=== PATIENT | male | born 1960 | race Caucasian/White ===

== ENCOUNTER 2017-09-16 18:33 | Emergency (ER) | payer MEDICARE ==
[2017-09-16 19:17] LABS: BASOPHILS 0.4 % (0-2); EOSINOPHILS 3.9 % (0-7); HEMATOCRIT 45.8 % (42.0-54.0); HEMOGLOBIN 15.8 g/dL (13.5-17.5); IMMATURE GRANULOCYTES 0.1 % (0-5); LYMPHOCYTES 44.2 % (15-50); MCH 31.9 pg (26.0-34.0); MCHC 34.5 g/dL (31.0-37.0); MCV 92.3 fL (80.0-100.0); MEAN PLATELET VOLUME 9.1 fL (7.4-10.4); MONOCYTES 7.2 % (2-11); NEUTROPHILS 44.2 % (40-80); PLATELET COUNT 280 10x3/uL (130-400); RBC 4.96 10x6/uL (4.20-6.10); RDW 13.3 % (11.5-14.5); WBC 7.4 10x3/uL (4.8-10.8)
[2017-09-16 19:26] LABS: APPEARANCE CLEAR (CLEAR); BILIRUBIN NEGATIVE (NEGATIVE); COLOR YELLOW (YELLOW); GLUCOSE NEGATIVE (NEGATIVE); KETONE NEGATIVE (NEGATIVE); NITRITE NEGATIVE (NEGATIVE); PROTEIN NEGATIVE (NEGATIVE); SPECIFIC GRAVITY 1.005 (1.005-1.020); UROBILINOGEN NORMAL (NORMAL)
[2017-09-16 19:33] LABS: ALBUMIN 4.1 g/dL (3.4-5.0); ALKALINE PHOSPHATASE 79 U/L (46-116); ALT (SGPT) 22 U/L (10-68); BILIRUBIN - TOTAL 0.21 mg/dL (0.2-1.3); CALC OSMOLALITY 279 mosm/kg (275-300); CALCIUM 9.3 mg/dL (8.5-10.1); CARBON DIOXIDE 27.8 mmol/L (21.0-32.0); CHLORIDE - SERUM 103 mmol/L (98-107); CREATININE - SERUM 0.9 mg/dL (0.6-1.3); GLUCOSE 93 mg/dL (74-106); POTASSIUM - SERUM 3.8 mmol/L (3.5-5.1); PROTEIN - SERUM 8.2 g/dL (6.4-8.2); SODIUM 140 mmol/L (136-145); UREA NITROGEN 14 mg/dL (7-18); eGFR NON AFRICAN AMERICAN > 90 mL/min (90-120)
[2017-09-16 19:41] LABS: CREATINE KINASE 110 UL (21-232); LIPASE 238 U/L (73-393); PRO BNP 53 pg/mL (0-125); THYROID STIMULATING HORMONE 0.97 uIU/mL (0.36-3.74)
[2017-09-16 19:42] LABS: TROPONIN-I < 0.017 ng/mL (0.000-0.060)
[2017-11-22 07:51] VITALS: BMI 20.2
== END 2017-09-16 22:39 | disposition home or self-care (01) ==
LOC: D.ER 18:33
PROVIDERS: Emergency Medicine
DX: R10.9 Unspecified abdominal pain (principal); N41.9 Inflammatory disease of prostate, unspecified; K21.9 Gastro-esophageal reflux disease without esophagitis; E11.9 Type 2 diabetes mellitus without complications; I10 Essential (primary) hypertension

== ENCOUNTER → 2017-10-03 08:26 | Outpatient (CLI) | payer MEDICARE ==
--- NOTE | ~2017-10-03 | EC ---
PATIENT:KENA PEREZ DATE OF SERVICE: 10/03/17 SEX: M MEDICAL RECORD: [id number] DATE OF : 64 LOCATION:D.[facility] AGE OF PATIENT: 57 ADMISSION DATE: 10/03/17 REFERRING PHYSICIAN: INTERPRETING PHYSICIAN: QUITA ROTHMAN MD ECHOCARDIOGRAM REPORT ECHO CHARGES 4 ECHO COMPLETE Date: 10/03 CLINICAL DIAGNOSIS: CP/HTN/PALPITATIONS/GARCIA ECHOCARDIOGRAPHIC MEASUREMENTS (adult normal given) AC root (d.<3.7cm) 3.5 cm LV Septum d (<1.2 cm> 1.2 cm Valve Excursion 2.2 cm LV Septum (systole) 1.6 cm Left Atria (s.<4.0cm> 2.9 cm LVPW d(<1.2cm) 1.2 cm RV (d.<2.3cm) 2.4 cm LVPW (sytole) 1.9 cm LV diastole(<5.6CM) 5.9 cm MV E-F(>70mm/sec) cm LV systole 3.8 cm LVOT Diameter 2.1 cm MV exc.(>10mm) cm Est.ejection fraction (50-75%) % DOPPLER: LVIT cm/sec A 55.0 cm/sec E 77.0 cm/sec LA cm/sec RVSP 32.0 mmHg LVOT 126 cm/sec AOP1/2T m/s Asc. 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 Rothman TAPE# PACS Pericardial Effusion N DATE OF SERVICE: PROCEDURE: Transthoracic echocardiogram. FINDINGS: 1. Left ventricle has mild left ventricular hypertrophy with inflow characteristics that are normal. The ejection fraction is 55%. There are no regional wall motion abnormalities. 2. The left atrium is normal size, normal function. 3. The aortic valve is normal. ECHOCARDIOGRAM REPORT [id number] KENA PEREZ 4. The mitral valve is normal with trace mitral regurgitation. 5. Tricuspid valve is normal with normal right ventricular systolic pressures. 6. The right ventricle is normal size, normal function. 7. The right atrium is mildly dilated. 8. The pulmonic valve is not well visualized. CONCLUSIONS: The patient has evidence of mild left ventricular hypertrophy, otherwise normal echocardiogram for the patient's stated age. TRANSINT:[id number] Voice Confirmation ID: [id number] DOCUMENT ID: [id number] QUITA ROTHMAN MD at 0741 CC: [id number] DICTATION DATE: 10/08/17 1051 WANIGAN CLERK: 10/08/17 1246 DEP CLI 10/03/17 [facility] [address] [place] [address]
[~2017-10-03 08:26] MED LIST: ASPIRIN325 MG PO; NITROQUICK0.4 MG SL; PLAVIX75 MG PO; ULTRAM50 MG PO
[2017-11-22 07:51] VITALS: BMI 20.2
== END | disposition home or self-care (01) ==
LOC: D.US 08:26
DX: R07.9 Chest pain, unspecified (principal); I10 Essential (primary) hypertension; E78.5 Hyperlipidemia, unspecified; I73.9 Peripheral vascular disease, unspecified; E11.8 Type 2 diabetes mellitus with unspecified complications; R00.2 Palpitations; R06.09 Other forms of dyspnea

== ENCOUNTER → 2017-10-10 17:42 | Outpatient (CLI) | payer MEDICARE ==
[2017-10-10 18:42] LABS: CHOL - HDL RATIO 5.1 ratio (2.3-4.9); LDL-HDL RATIO 3.2 ratio (1.5-3.5)
[2017-11-22 07:51] VITALS: BMI 20.2
== END | disposition home or self-care (01) ==
LOC: D.LABREF 17:42
PROVIDERS: Internal Medicine Cardiovascular Disease
DX: E78.5 Hyperlipidemia, unspecified (principal)

== ENCOUNTER 2017-11-22 06:55 | Outpatient (CLI) | payer MEDICARE ==
[~2017-11-22] VITALS: Ht 188 cm; Wt 71.4 kg
--- NOTE | ~2017-11-22 | HEMODYNAMI ---
PATIENT:KENA PEREZ MEDICAL RECORD: [id number] : 64 [place] ADMISSION DATE: 11/22/17 Generatedon:11/22/20179:25 Patient name: KENA PEREZ Patient #: [id number] SSN: : 1960 Date of study: 11/22/2017 Page: Of Hemodynamic Procedure Report Patient Data Patient Demographics Procedure consent was obtained First Name: KENA Gender: Male Last Name: ANA : 1960 Patient #: [id number] Age: 57 year(s) Race: Unknown Additional ID: [id number] Contact details Address: [place] [address] State: [place] City: [place] Zip code: [address] Past Medical History Allergies Allergen Reaction Date Comments Reported Other allergy 11/22/2017 Nsaids, Sulfas Admission Admission Data Admission Date: 11/22/2017 Admission Time: 6:55 Height (in.): 73 BSA: 1.94 (m2) Height (cm.): 185.42 BMI: 20.71 (kg/m2) Weight (lbs.): 157 Weight (kg.): 71.21 Procedure Procedure Types Cath Procedure Diagnostic Procedure LHC LH w/Coronaries Sedation Charges Moderate Sedation up to 30 minutes PCI Procedure Coronary Stent Coronary Stent Initial Procedure Description Procedure Date Procedure Date: 11/22/2017 Procedure Start Time: 8:51 Procedure End Time: 9:20 Procedure Staff Name Function Mark Goncalves MD Performing Physician Ruy Martins RN Nurse Katerina Houston RT Scrub Kary Oglesby RT Monitor Procedure Data Cath Procedure Fluoroscopy Diagnostic fluoroscopy Total fluoroscopy Time: 3.5 time: 3.5 min min Diagnostic fluoroscopy Total fluoroscopy dose: 551 dose: 551 mGy mGy Contrast Material Contrast Material Type Amount (ml) Isovue 300 83 Entry Location Entry Primary Successful Side Size Upsize Upsize Entry Closure [place] ccessful Closure Location (Fr) 1 (Fr) 2 (Fr) Remarks Device Remarks Radial Right 6 Fr Mechanical artery Short Compression Estimated blood loss: 10 ml Diagnostic catheters Device Type Used For End Catheter Placement DIAGNOSTIC [place] 110cm 5 Procedure Fr catheter ([id number]) Procedure Complications No complications Procedure Medications Medication Administration Route Dosage Oxygen NC 2 l/min Lidocaine 2% added to field 20 Heparin Flush Bag added to field 2 bags (1000units/500ml NS) 0.9% NaCl I.V. 100 ml/hr Versed I.V. 1 mg Fentanyl I.V. 50 mcg Radial Cocktail I.A. 1 syringe (Verapomil 2mg/Nitro 400mcg/Heparin 1500units) Angiomax (bolus) I.V. 10.5 ml Angiomax Drip I.V. drip 24.9 ml/hr (250mg/50ml NS) (Standard) Nitroglycerin IC/IA I.C. 300 mcg Plavix P.O. 300 mg Angiomax Drip 24.9 ml/hr (250mg/50ml NS) (Standard) Hemodynamics Rest BSA: 1.94 (m2) O2 Consumption: Estimated: 230.88 (ml/min) O2 Consumption indexed : Estimated:119.01 (ml/min/m) Heart Rate: 71 (bpm) Pressure Samples Time Site Value (mmHg) Purpose Heart Use Rate(bpm) 9:00 LV 129/-12,11 EDP 77 Gradients Valve Time Site Site Mean SEP/DFP Peak To Heart Use 1 2 (mmHg) (sec/min) Peak Rate (mmHg) (bpm) Aortic 9:01 LV AO 88 Snapshots Pre Cath Intra NCS Post Cath Vital Signs Time Heart Resp SPO2 etCO2 NIBP (mmHg) Rhythm Pain Sedation Rate (ipm) (%) (mmHg) Status Level (bpm) 8:34:19 87 17 99 0 144/91(129) NSR 0 (11) 10(A) , No pain 8:38:31 71 18 99 29.2 139/86(123) NSR 0 (11) 10(A) , No pain 8:42:42 72 21 97 29.2 131/82(106) NSR 0 (11) 10(A) , No pain 8:46:54 66 18 94 29.9 126/72(107) NSR 0 (11) 10(A) , No pain 8:51:00 80 19 94 32.2 135/86(112) NSR 0 (11) 10(A) , No pain 8:55:10 70 19 94 29.9 131/83(109) NSR 0 (11) 10(A) , No pain 8:59:30 85 19 95 28.4 134/85(111) NSR 0 (11) 10(A) , No pain 9:03:42 74 19 92 27.7 126/77(95) NSR 0 (11) 10(A) , No pain 9:07:50 73 18 92 27.7 135/80(97) NSR 0 (11) 10(A) , No pain 9:12:02 72 15 92 29.2 125/79(109) NSR 0 (11) 10(A) , No pain 9:16:12 68 17 92 29.2 124/74(108) NSR 0 (11) 10(A) , No pain 9:20:30 72 18 95 26.2 135/85(109) NSR 0 (11) 10(A) , No pain Medications Time Medication Route Dose Verified Delivered Reason Notes Effectiveness by by 8:32:53 Oxygen NC 2 l/min Mark Buffie used for Ivanna Martins RN procedure 8:32:59 Lidocaine 2% added to 20ml Mark Mark for local field vial Ivanna Goncalves MD anesthetic 8:33:05 Heparin Flush added to 2 bags Mark Mark used for Bag field Ivanna Goncalves MD procedure (1000units/500ml NS) 8:33:14 0.9% NaCl I.V. 100 Mark Buffie Per physician ml/hr Ivanna Martins RN, MD 8:43:24 Versed I.V. 1 mg Mark Buffie for sedation Ivanna Martins RN, MD 8:43:30 Fentanyl I.V. 50 mcg Mark Buffie for sedation Ivanna Martins RN, MD 8:58:44 Radial Cocktail I.A. 1 Mark Mark for (Verapomil syringe Ivanna Goncalves MD vasodilation 2mg/Nitro 400mcg/Heparin 1500units) 9:08:57 Angiomax (bolus) I.V. 10.5 ml Mark Buffie for Ivanna Martins RN anticoagulation 9:10:02 Angiomax Drip I.V. drip 24.9 Mark Buffie for (250mg/50ml NS) ml/hr Ivanna Martins RN anticoagulation (Standard) 9:11:39 Nitroglycerin I.C. 300 mcg Mark Flores for IC/IA Ivanna Goncalves MD vasodilation 9:19:59 Plavix P.O. 300 mg Mark Martins RN antiplatelet therapy 9:20:11 Angiomax Drip I.V. drip- 24.9 Mark Redmond for (250mg/50ml NS) discontinued ml/hr Ivanna Martins RN anticoagulation (Standard) Procedure Log Time Note 8:17:27 Patient Height : 73 inches 8:17:35 Patient Weight : 157 lbs 8:18:30 Diagnostic Cath status Elective 8:18:33 Ruy Martins RN sent for patient. Start room use. 8:18:34 Time tracking: Regular hours (M-F 7:00 - 5:00) 8:18:39 Plan of Care:Hemodynamics will remain stable., Cardiac rhythm will remain stable., Comfort level will be maintained., Respiratory function will remain adequate., Patient/ family verbilizes understanding of procedure., Procedure tolerated without complication., Recovers from procedure without complications.. 8:18:44 Patient received from Pre/Post Procedure Room to [facility] 2 Alert and oriented. Tansferred to table in Supine position. 8:32:53 Oxygen 2 l/min NC was administered by Ruy Martins RN; used for procedure; 8:32:59 Lidocaine 2% 20ml vial added to field was administered by Mark Goncalves MD; for local anesthetic; 8:33:05 Heparin Flush Bag (1000units/500ml NS) 2 bags added to field was administered by Mark Goncalves MD; used for procedure; 8:33:14 0.9% NaCl 100 ml/hr I.V. was administered by Ruy Martins RN; Per physician; 8:33:16 Vital chart was started 8:33:29 Warm blankets applied, and jonnathan hugger turned on for patient comfort. 8:33:30 Correct patient and procedure confirmed by team. 8:33:31 Signed procedure consent form obtained from patient. 8:33:32 ECG and BP/O2 sat monitors applied to patient. 8:33:34 Full Disclosure recording started 8:39:54 Baseline sample Acquired. 8:40:09 H&P Date Dictated: 11/20/2017 Within 30 days and on chart., H&P Addendum completed by physician on day of procedure. (MUST COMPLETE FOR ALL OUTPATIENTS). 8:40:10 Pre-procedure instructions explained to patient. 8:40:12 Family in waiting room. 8:40:15 Patient NPO since Midnight. 8:40:38 Patient allergic to Other allergyNsaids, Sulfas 8:40:41 Is the patient allergic to Iodine/contrast media? No. 8:40:42 Was the patient premedicated? Yes 8:40:44 Is patient on blood thinner?Yes 8:40:48 ACC The patient was administered the following blood thiners within the last 24 hours: ACCPlavix 8:40:51 Patient diabetic? Yes. 8:40:53 If diabetic: On Metformin? No 8:40:57 Snore? Yes 8:40:59 Sleep apnea? No 8:41:01 Airway obstruction? No ? 8:41:05 Dentures? No ? 8:41:10 Patient pain scale 0/10 ?. 8:41:17 IV patent on arrival in left forearm with 0.9% NaCl at O. 8:41:21 Lab results completed and on chart. 8:41:24 Right Radial & Right Groin area was prepped with chlora-prep and draped in sterile fashion 8:41:26 Alarms reviewed by R. N. 8:41:26 Sharps counted by scrub and verified by R.N. 8:41:29 Physician arrived 8:41:31 --------ALL STOP TIME OUT------ 8:41:32 Final Timeout: patient, procedure, and site verified with staff and physician. All members of the team are in agreement. 8:41:34 Right Radial & Right Groin site verified by team. 8:41:38 Physical assessment completed. ASA score P 2 - A patient with mild systemic disease as per Mark Goncalves MD. 8:41:42 Sedation plan: IV Moderate Sedation Medication:Versed, Fentanyl 8:41:46 Use device set Femoral Dx 8:41:48 ACIST Syringe (58850) opened to sterile field. 8:41:48 Bag Decanter (2001S) opened to sterile field. 8:41:48 Medline Cath Pack ([id number]) opened to sterile field. 8:41:49 DIAGNOSTIC WIRE .035 260cm J wire (479269) opened to sterile field. 8:41:50 ACIST Hand Control (26994) opened to sterile field. 8:41:51 ACIST Manifold (63667) opened to sterile field. 8:41:56 Tegaderm 4 x 4 (1626W) opened to sterile field. 8:42:11 SHEATH 6Fr Prelude Radial ([id number]) opened to sterile field. 8:43:24 Versed 1 mg I.V. was administered by Ruy Martins RN; for sedation; 8:43:30 Fentanyl 50 mcg I.V. was administered by Ruy Martins RN; for sedation; 8:51:06 Procedure started. 8:51:15 Local anesthetic to right radial artery with Lidocaine 2% by Mark Goncalves MD.INITIAL ACCESS ONLY 8:51:18 Zero performed for pressure channel P1 8:51:23 Zero performed for pressure channel P1 8:51:30 Zero performed for pressure channel P1 8:51:35 Zero performed for pressure channel P1 8:51:38 Zero performed for pressure channel P1 8:51:41 Zero performed for pressure channel P1 8:52:19 Zero performed for pressure channel P1 8:57:16 A 6 Fr Short sheath was inserted into the Right Radial artery 8:58:36 A DIAGNOSTIC [place] 110cm 5 Fr catheter ([id number]) was advanced over the wire and used for Procedure. 8:58:44 Radial Cocktail (Verapomil 2mg/Nitro 400mcg/Heparin 1500units) 1 syringe I.A. was administered by Mark Goncalves MD; for vasodilation; 8:58:52 LV angiography performed. 9:01:14 EF : 60 % 9:01:17 RCA angiography performed. 9:01:41 LCA angiography performed. 9:02:55 Catheter removed. 9:02:57 Proceeding to intervention. 9:05:20 GUIDE 6FR EBU 3.5 SH catheter ([id number]) opened to sterile field. 9:05:20 BMW 190cm [place] 2 J wire ([id number]) opened to sterile field. 9:05:21 COPILOT Valve Control (3866536) opened to sterile field. 9:05:22 INFLATOR Merit BasixCompak (BL7758) opened to sterile field. 9:08:57 Angiomax (bolus) 10.5 ml I.V. was administered by Ruy Martins RN; for anticoagulation; 9:10:01 6 Fr EBU 3.5SH guide catheter was inserted over the wire 9:10:02 Angiomax Drip (250mg/50ml NS) (Standard) 24.9 ml/hr I.V. drip was administered by Ruy Martins RN; for anticoagulation; 9:10:25 BMW wire advanced. 9:10:27 Wire advanced across lesion. 9:11:39 Nitroglycerin IC/IA 300 mcg I.C. was administered by Mark Goncalves MD; for vasodilation; 9:13:42 Inflate balloon Inflation number: 1 A EUPHORA 2.5 x 20 Balloon ([id number]) was prepped and advanced across the Mid LAD, then inflated to 8 THANH for 0:08 (min:sec). 9:14:09 Balloon removed over the wire. 9:16:20 Place stent Inflation Number: 2 A CRUZITO RX 2.75 x 18 stent ([id number]) was prepped and advanced across the Mid LAD. The stent was deployed at 14 THANH for 0:10 (min:sec). 9:17:18 Stent catheter was removed intact over wire. 9:17:20 Wire removed. 9:17:20 Guide catheter removed. 9:18:05 TR BAND Standard ([id number]) opened to sterile field. 9:18:18 Sheath removed intact; hemostasis achieved with Mechanical Compression to the Right Radial artery. 9:18:26 Procedure ended.(Physican Out) 9:19:08 Fluoroscopy time 03.50 minutes. 9:19:13 Flurop Dose total: 551 9:19:13 Fluoroscopy dose: 551 mGy 9:19:18 Contrast amount:Isovue 300 83ml. 9:19:21 Sharps counted by scrub and verified by R.N. 9:19:24 Insertion/operative site no bleeding no hematoma. 9:19:32 Post right radial artery:stable 9:19:34 Post Procedure Pulses reassessed and unchanged 9:19:37 Post-procedure physical assessment completed. ASA score P 2 - A patient with mild systemic disease as per Mark Goncalves MD. 9:19:39 Post procedure rhythm: unchanged. 9:19:44 Estimated blood loss: 10 ml 9:19:45 Post procedure instruction explained to patient.Patient verbalizes understanding. 9:19:59 Plavix 300 mg P.O. was administered by Ruy Martins RN; for antiplatelet therapy; 9:20:08 Procedure type changed to Cath procedure, Diagnostic procedure, LHC, LHC w/Coronaries, Sedation Charges, Moderate Sedation up to 30 minutes, PCI procedure, Coronary Stent, Coronary Stent Initial 9:20:11 Angiomax Drip (250mg/50ml NS) (Standard) 24.9 ml/hr I.V. drip- discontinued was administered by Ryu Martins RN; for anticoagulation; 9:20:17 Procedure and supply charges have been captured, reviewed, submitted and are correct. 9:20:37 Procedure Complication : No complications 9:20:40 Vital chart was stopped 9:20:41 See physician's report for complete and final results. 9:20:43 Report given to Pre/Post Procedure Room. 9:20:47 Patient transfered to Pre/Post Procedure Room with Stretcher. 9:20:49 Procedure ended. 9:20:49 Full Disclosure recording stopped 9:20:53 End room use (Document Last) Intervention Summary Intervention Notes Time ActionType Lesion and Equipment Used Action# Pressure Duration Attributes 9:13:42 Inflate Mid LAD EUPHORA 2.5 x 1 8 00:08 balloon 20 Balloon ([id number]) 9:16:20 Place stent Mid LAD CRUZITO RX 2.75 x 2 14 00:10 18 stent ([id number]) Device Usage Item Name Manufacture Quantity Catalog Number Hospital Part Current Minimal Lot# / Charge Number Stock Stock Serial# Code ACIST Syringe Acist 1 86830 [id number] 418185 564152 20 (30570) [employer] Bag Decanter Microtek 1 2001S 027317 75841 754509 5 () Medical Inc. Medline Cath Cardinal 1 [id number] 762385 83237 622689 5 [facility] ([id number]) DIAGNOSTIC WIRE St Radhames 1 287405 909978 897457 954508 30 .035 260cm J wire (543933) ACIST Hand Acist 1 75874 030378 367882 265115 5 Control (54146) [employer] ACIST Manifold Acist 1 69870 472570 868985 215342 5 (19087) [employer] Inc Tegaderm 4 x 4 3M 1 1626W 616458 305270 044553 5 (1626W) SHEATH 6Fr Merit 1 [id number] 637343 027685 441847 5 Prelude Radial Medical ([id number]) DIAGNOSTIC Terumo 1 40-1356 687875 305517 532154 5 [place] 110cm 5 Fr catheter (105618) GUIDE 6FR EBU Medtronic 1 [id number] 427116 44746 097312 1 3.5 SH catheter ([id number]) BMW 190cm Silverio 1 [id number] 723461 60187 179456 5 [place] 2 J Vascular wire ([id number]) COPILOT Valve Silverio 1 [id number] 454205 702613 958887 5 Control Vascular (6740955) INFLATOR Merit Merit 1 [id number] 052906 394791 433835 15 BasixCompak Medical (BZ8667) EUPHORA 2.5 x Medtronic 1 [id number] 686674 243603 384737 5 [id number] 20 Balloon ([id number]) CRUZITO RX 2.75 x Medtronic 1 [id number] 684510 9146209 836115 5 [id number] 18 stent ([id number]) TR BAND Terumo 1 [id number] 975299 418144 653462 40 Standard ([id number]) Signature Audit Mamou Stage Time Signature Unsigned Intra-Procedure 11/22/2017 Kary Oglesby 9:25:12 AM RT(R) Signatures Monitor : Kary Oglesby Signature : RT Date : Time : [facility] [address] [place] [address]
[2017-11-22] MEDS ORDERED: NITROQUICK0.4 MG SL (07:41)
[2017-11-22] MEDS ORDERED: PLAVIX75 MG PO (07:41)
[2017-11-22] MEDS ORDERED: ASPIRIN325 MG PO (07:42)
[2017-11-22] MEDS ORDERED: ULTRAM50 MG PO (07:42)
[2017-11-22 07:51] VITALS: BP 138/90; Ht 188 cm; Wt 71.4 kg
[2017-11-22 07:59] LABS: BASOPHILS 0.7 % (0-2); EOSINOPHILS 4.1 % (0-7); HEMATOCRIT 46.2 % (42.0-54.0); HEMOGLOBIN 16.1 g/dL (13.5-17.5); IMMATURE GRANULOCYTES 0.3 % (0-5); LYMPHOCYTES 38.9 % (15-50); MCH 32.6 pg (26.0-34.0); MCHC 34.8 g/dL (31.0-37.0); MCV 93.5 fL (80.0-100.0); MONOCYTES 10.2 % (2-11); NEUTROPHILS 45.8 % (40-80); PLATELET COUNT 259 10x3/uL (130-400); RBC 4.94 10x6/uL (4.20-6.10); WBC 5.9 10x3/uL (4.8-10.8)
[2017-11-22 08:08] LABS: CALC OSMOLALITY 278 mosm/kg (275-300); CALCIUM 9.6 mg/dL (8.5-10.1); CARBON DIOXIDE 30.1 mmol/L (21.0-32.0); CHLORIDE - SERUM 105 mmol/L (98-107); CREATININE - SERUM 0.9 mg/dL (0.6-1.3); GLUCOSE 89 mg/dL (74-106); POTASSIUM - SERUM 4.3 mmol/L (3.5-5.1); SODIUM 141 mmol/L (136-145); UREA NITROGEN 10 mg/dL (7-18); eGFR NON AFRICAN AMERICAN > 90 mL/min (90-120)
== END 2017-11-22 14:05 | disposition home or self-care (01) ==
LOC: D.CATH 06:55
PROVIDERS: Internal Medicine Cardiovascular Disease
DX: I25.119 Atherosclerotic heart disease of native coronary artery with unspecified angina pectoris (principal); Z01.812 Encounter for preprocedural laboratory examination
CPT/HCPCS: 93458; C9600

== ENCOUNTER 2017-12-31 22:49 | Emergency (ER) | payer MEDICARE ==
[~2017-12-31] VITALS: Ht 188 cm; Wt 72.7 kg
[2017-12-31 22:54] VITALS: Ht 188 cm; Wt 72.7 kg
[2017-12-31] MEDS ORDERED: BUTALB-APAP-CA1 EACH PO (22:57)
[2018-01-01 00:05] LABS: HEMATOCRIT 40.1 % (42.0-54.0); HEMOGLOBIN 13.9 g/dL (13.5-17.5); LYMPHOCYTES 47.2 % (15-50); MCH 31.8 pg (26.0-34.0); MCHC 34.7 g/dL (31.0-37.0); MCV 91.8 fL (80.0-100.0); MEAN PLATELET VOLUME 8.3 fL (7.4-10.4); NEUTROPHILS 45.2 % (40-80); PLATELET COUNT 265 10x3/uL (130-400); RBC 4.37 10x6/uL (4.20-6.10); RDW 13.1 % (11.5-14.5); WBC 7.5 10x3/uL (4.8-10.8)
[2018-01-01 00:17] LABS: ALBUMIN 3.5 g/dL (3.4-5.0); ALKALINE PHOSPHATASE 78 U/L (46-116); ALT (SGPT) 23 U/L (10-68); CALC OSMOLALITY 278 mosm/kg (275-300); CALCIUM 8.2 mg/dL (8.5-10.1); CARBON DIOXIDE 31.3 mmol/L (21.0-32.0); CHLORIDE - SERUM 104 mmol/L (98-107); CREATININE - SERUM 0.8 mg/dL (0.6-1.3); GLUCOSE 94 mg/dL (74-106); POTASSIUM - SERUM 3.6 mmol/L (3.5-5.1); SODIUM 140 mmol/L (136-145); UREA NITROGEN 12 mg/dL (7-18); eGFR NON AFRICAN AMERICAN > 90 mL/min (90-120)
[2018-01-01 00:21] LABS: BILIRUBIN - TOTAL 0.07 mg/dL (0.2-1.3)
[2018-01-01 00:26] LABS: APTT 26.8 SECONDS (22.8-39.4); INR 0.8 (0.85-1.17); PROTIME 10.7 SECONDS (11.6-15.0)
[2018-01-01 05:25] VITALS: BP 118/89
== END 2018-01-01 03:24 | disposition home or self-care (01) ==
LOC: D.ER 22:49
PROVIDERS: Family Medicine
DX: R51 Headache (principal); E11.9 Type 2 diabetes mellitus without complications; I10 Essential (primary) hypertension; F17.200 Nicotine dependence, unspecified, uncomplicated

== ENCOUNTER → 2018-01-08 16:30 | Outpatient (CLI) | payer MEDICARE ==
[2017-12-31 22:54] VITALS: BMI 20.5
[~2018-01-08 16:30] MED LIST changes: +BUTALB-APAP-CA1 EACH PO
[2018-01-08 20:19] LABS: CHOL - HDL RATIO 4.5 ratio (2.3-4.9); LDL-HDL RATIO 2.9 ratio (1.5-3.5)
== END | disposition home or self-care (01) ==
LOC: D.LABREF 16:30
PROVIDERS: Internal Medicine Cardiovascular Disease
DX: E78.5 Hyperlipidemia, unspecified (principal)

== ENCOUNTER → 2018-01-31 09:56 | Outpatient (CLI) | payer MEDICARE ==
[2017-12-31 22:54] VITALS: BMI 20.5
== END | disposition home or self-care (01) ==
LOC: D.US 09:56
DX: I10 Essential (primary) hypertension (principal); I25.10 Atherosclerotic heart disease of native coronary artery without angina pectoris; I73.9 Peripheral vascular disease, unspecified

== ENCOUNTER → 2018-02-19 17:16 | Outpatient (CLI) | payer MEDICARE ==
[2017-12-31 22:54] VITALS: BMI 20.5
[2018-02-19 18:37] LABS: CHOL - HDL RATIO 3.8 ratio (2.3-4.9); LDL-HDL RATIO 2.2 ratio (1.5-3.5)
== END | disposition home or self-care (01) ==
LOC: D.LABREF 17:16
PROVIDERS: Internal Medicine Cardiovascular Disease
DX: I10 Essential (primary) hypertension (principal)

== ENCOUNTER → 2018-07-02 17:08 | Outpatient (CLI) | payer MEDICARE ==
[2017-12-31 22:54] VITALS: BMI 20.5
[2018-07-02 17:27] LABS: CHOL - HDL RATIO 5.1 ratio (2.3-4.9); LDL-HDL RATIO 3.2 ratio (1.5-3.5)
== END | disposition home or self-care (01) ==
LOC: D.LABREF 17:08
PROVIDERS: Internal Medicine Interventional Cardiology
DX: E78.5 Hyperlipidemia, unspecified (principal)